=== PATIENT | female | born 1990 | race Caucasian/White ===

== ENCOUNTER 2019-03-25 21:57 | Emergency (ER) | payer SELFPAY ==
[2019-03-25 22:06] VITALS: BMI 20.2
[2019-03-25] MEDS ORDERED: SODIUM CHLORIDE 0.9% 500 ML INFUS.BAG IV ONE (22:26)
--- NOTE | 2019-03-25 22:52 | PDOC ---
History of Present Illness - General Chief Complaint: Pain Stated Complaint: ABD PAIN/FINGER NUMBNESS Time Seen by Provider: 03/25/19 22:24 History Source: Patient Exam Limitations: No Limitations - History of Present Illness Initial Comments: 03/25/19 22:43 28YOF who is with one prior vaginal delivery followed by one LTCS in 2014, who p/w 2 weeks worsening constipation now with mild abdominal swelling and discomfort. She is still passing gas, had a BM today at 5pm which was small, prior to that he last BM was a couple of days ago. States came in today because the discomfort was hard to tolerate last night. She last took Tylenol yesterday. Fever last week but no other recent symptoms, no n/v/d, black/bloody stool, white stool, dysuria, vaginal bleeding or discharge, due for her menstrual period tomorrow. Has not tried a laxative. Past History - Past Medical History Allergies/Adverse Reactions: Allergies Allergy/AdvReac Type Severity Reaction Status Date / Time kiwi Allergy Severe Rash Verified 08/14/14 15:08 No Known Drug Allergies Allergy Verified 07/26/14 13:10 pain medication AdvReac Intermediate Swelling Uncoded 08/14/14 15:08 Home Medications: Ambulatory Orders Vitamins (Sjr) - 1 tab PO DAILY 07/26/14 Acetaminophen [Tylenol .Regular Strength -] 650 mg PO Q4H PRN #0 tablet Ferrous Sulfate [Feosol] 325 mg PO BIDWM #60 ud 08/16/14 Ibuprofen [Motrin -] 600 mg PO Q4H PRN #30 tablet 08/16/14 Vitamins (Sjr) - 1 tab PO DAILY #30 tablet 08/16/14 Docusate Sodium [Colace] 100 mg PO BID PRN #14 capsule 03/25/19 Anemia: Yes Asthma: No Cancer: No Cardiac Disorders: No COPD: No Diabetes: No HTN: No Seizures: No Thyroid Disease: No - Psycho Social/Smoking Cessation Hx Smoking History: Never smoked Have you smoked in the past 12 months: No Hx Alcohol Use: No Drug/Substance Use Hx: No Hx Substance Use Treatment: No Review of Systems - Review of Systems Comments:: 03/25/19 23:07 GEN: no fever, chills, malaise, or generalized weakness HEENT: no ear pain, congestion, sore throat, vision change, or eye pain CV: no chest pain, palpitations, lightheadedness, syncope, or edema RESP: no SOB, wheezing, or cough GI: abdominal pain and swelling, constipation, no nausea, vomiting, diarrhea, or rectal bleed : no dysuria, hematuria, or discharge MSK: no muscle weakness or pain, no joint swelling or pain NEURO: no headache, vertigo, numbness, tingling, or focal weakness PSYCH: no SI, HI, or behavior change SKIN: no jaundice, rash, lesions, or unexplained bruises ROS otherwise negative except as noted in HPI *Physical Exam - Vital Signs Last Vital Signs Temp Pulse Resp BP Pulse Ox 97.8 F 74 20 108/69 100 03/25/19 22:02 03/25/19 22:02 03/25/19 22:02 03/25/19 22:02 03/25/19 22:02 - Physical Exam 03/25/19 23:08 GENERAL: well-appearing, A/Ox4, no distress, answers questions appropriately HEENT: PERRLA, EOMI, moist mucous membranes NECK/BACK: no midline ttp, no spinal stepoff or deformity, no hematoma, full ROM , neck supple CARDIOVASCULAR: regular rate/rhythm, no MGR, strong peripheral pulses, capillary refill <2 seconds, extremities wwp, no edema LUNGS/RESPIRATORY: no respiratory distress, CTAB GI/ABDOMEN: symmetric [id number], hypoactive BS, a bit distended, no ttp, no midline pulsatile masses : no CVA tenderness EXTREMITIES: no muscle atrophy, no acute deformity SKIN: warm and dry, no pallor, no jaundice, no rash, no bruising, no skin breakdown, no cuts, no lesions NEUROLOGICAL: GCS 15, CN II-XII grossly intact, 5/5 strength proximally and distally, no facial droop ED Treatment Course - LABORATORY CBC & Chemistry Diagram: 03/25/19 22:40 03/25/19 22:40 - RADIOLOGY Radiology Studies Ordered: Category Date Time Status ABDOMEN FLAT & UPRIGHT [RAD] Stat Radiology 03/25/19 22:41 Ordered Medical Decision Making - Medical Decision Making 03/25/19 22:52 28YOF p/w constipation and abdominal pain. Initial Vital Signs Temp Pulse Resp BP Pulse Ox 97.8 F 74 20 108/69 100 03/25/19 22:02 03/25/19 22:02 03/25/19 22:02 03/25/19 22:02 03/25/19 22:02 Exam: As noted in Physical Exam section. DDX IBNLT: most likely constipation. Other possibilities , SBO, UTI, etc. W/U ordered: Labs as noted below, XR flat & upright abdomen TX ordered: IVF Abdominal x-ray shows retained stool without dilated bowel loops or air-fluid levels. Fleets enema ordered. Laboratory Tests 03/25/19 03/25/19 03/25/19 22:40 22:40 22:40 WBC 10.7 H RBC 4.28 Hgb 9.6 L Hct 30.2 L D MCV 70.5 L MCH 22.4 L MCHC 31.8 L RDW 17.5 H Plt Count 317 D MPV 8.9 Absolute Neuts (auto) 8.3 H Neutrophils % 77.0 Lymphocytes % 15.8 Monocytes % 6.2 Eosinophils % 0.2 Basophils % 0.8 Nucleated RBC % 0 Sodium 135 L Potassium 3.7 Chloride 104 Carbon Dioxide 21 Anion Gap 9 BUN 10.7 Creatinine 0.7 Est GFR (CKD-EPI)AfAm 138.59 Est GFR (CKD-EPI)NonAf 119.58 Random Glucose 135 H Calcium 9.3 Magnesium 2.0 Total Bilirubin 0.2 AST 6 L ALT 16 Alkaline Phosphatase 75 Total Protein 8.2 Albumin 3.9 Serum , Qual Urine Color Urine Appearance Urine pH Ur Specific [place] Urine Protein Urine Glucose (UA) Urine Ketones Urine Blood Urine Nitrite Urine Bilirubin Urine Urobilinogen Ur Leukocyte Esterase Urine WBC (Auto) Urine RBC (Auto) Urine Casts (Auto) U Epithel Cells (Auto) Urine Bacteria (Auto) 03/25/19 03/26/19 23:20 00:00 WBC RBC Hgb Hct MCV MCH MCHC RDW Plt Count MPV Absolute Neuts (auto) Neutrophils % Lymphocytes % Monocytes % Eosinophils % Basophils % Nucleated RBC % Sodium Potassium Chloride Carbon Dioxide Anion Gap BUN Creatinine Est GFR (CKD-EPI)AfAm Est GFR (CKD-EPI)NonAf Random Glucose Calcium Magnesium Total Bilirubin AST ALT Alkaline Phosphatase Total Protein Albumin Serum , Qual Negative Urine Color Yellow Urine Appearance Clear Urine pH 8.5 H Ur Specific [place] 1.017 Urine Protein Negative Urine Glucose (UA) Negative Urine Ketones Negative Urine Blood 1+ H Urine Nitrite Negative Urine Bilirubin Negative Urine Urobilinogen 0.2 Ur Leukocyte Esterase Negative Urine WBC (Auto) 1 Urine RBC (Auto) 16 Urine Casts (Auto) 1 U Epithel Cells (Auto) 2.3 Urine Bacteria (Auto) 50.7 03/26/19 05:04 EXAM: CT abdomen and pelvis without contrast HISTORY: Abdominal pain COMPARISON: None. FINDINGS: Lung bases are clear. The visualized cardiac chambers are normal size and configuration. Normal liver, gallbladder, pancreas, spleen, adrenal glands and kidneys. The stomach and abdominal small and large bowel are normal. There is no aortic aneurysm. There is no significant retroperitoneal lymphadenopathy. Somewhat prominent mesenteric adenopathy is nonspecific but may indicate mesenteric adenitis. The pelvic small and large bowel are normal. There is no evidence of appendicitis, although the pain is only partially visualized. The uterus and adnexal structures are notable only for a low lying IUD which may be protruding into the cervix.. Urinary bladder is unremarkable. There is a small amount of pelvic free fluid. No discrete pelvic lymphadenopathy is identified. IMPRESSION: Low lying IUD may be protruding into the cervix. Small amount of pelvic free fluid may be physiologic. Questionable mesenteric adenitis. This patient has gotten significant relief of symptoms while in the ED. On last reassessment, vitals are wnl, pain is reasonably controlled, and exam is benign. Workup is not concerning for emergency-level pathology at this time. This patient is appropriate for discharge with close outpatient follow up. They are comfortable with this plan and will follow up with PCP in 1-3 days. E-Rx sent for Colace. Specific return precautions are discussed and they will come back to the ER if necessary. Discharge - Discharge Information Problems reviewed: Yes Clinical Impression/Diagnosis: Intrauterine device, Mesenteric adenitis Constipation Qualifiers: Constipation type: unspecified constipation type Qualified Code(s): K59.00 - Constipation, unspecified Condition: Stable Disposition: HOME - Admission No - Additional Discharge Information Prescriptions: Docusate Sodium [Colace] 100 mg PO BID PRN #14 capsule PRN Reason: Constipation - Follow up/Referral Referrals: Derrek Collazo MD [Staff Physician] - - Patient Discharge Instructions Patient Printed Discharge Instructions: DI for Constipation Additional Instructions: You were seen in the ER for constipation and abdominal pain. We did an exam, imaging studies, and labs. After our assessment, we do not believe you are having a medical emergency at this time, and we believe you are safe to go home. 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 We are giving you referral information for a new hip hop artist in case you need one. 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 Drink plenty of fluids and eat plenty of fiber. Please follow up with your primary care provider in 1-3 days. Call their clinic, tell them you were seen in the ER, and tell them you need a follow-up. If you have any new or worsening symptoms, please come back to the ER at any time (24 hours a day). Especially come back if you have worsening pain, vomiting, inability to pass gas , or if you have not had a bowel movement in the next 2 days. If you are having severe or life threatening symptoms, or symptoms that make it unsafe to drive or have someone drive you, please call 911. Here are the results of your CT scan. 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 EXAM: CT abdomen and pelvis without contrast HISTORY: Abdominal pain COMPARISON: None. FINDINGS: Lung bases are clear. The visualized cardiac chambers are normal size and configuration. Normal liver, gallbladder, pancreas, spleen, adrenal glands and kidneys. The stomach and abdominal small and large bowel are normal. There is no aortic aneurysm. There is no significant retroperitoneal lymphadenopathy. Somewhat prominent mesenteric adenopathy is nonspecific but may indicate mesenteric adenitis. The pelvic small and large bowel are normal. There is no evidence of appendicitis, although the pain is only partially visualized. The uterus and adnexal structures are notable only for a low lying IUD which may be protruding into the cervix.. Urinary bladder is unremarkable. There is a small amount of pelvic free fluid. No discrete pelvic lymphadenopathy is identified. IMPRESSION: Low lying IUD may be protruding into the cervix. Small amount of pelvic free fluid may be physiologic. Questionable mesenteric adenitis. - Post Discharge Activity Work/Back to School Note: Back to Work
[2019-03-25 23:06] LABS: BASO % 0.8 % (0-2.0); EOS % 0.2 % (0-4.5); HEMATOCRIT 30.2 % (32.4-45.2); HEMOGLOBIN 9.6 GM/dL (10.7-15.3); LYMPH % 15.8 % (8-40); MCH 22.4 pg (25.7-33.7); MCHC 31.8 g/dl (32.0-36.0); MEAN CELL VOLUME 70.5 fl (80-96); MEAN PLT VOLUME 8.9 fl (7.5-11.1); MONO % 6.2 % (3.8-10.2); PLATELET COUNT 317 K/MM3 (134-434); RBC 4.28 M/mm3 (3.60-5.2); RDW 17.5 % (11.6-15.6); WHITE BLOOD COUNT 10.7 K/mm3 (4.0-10.0)
--- NOTE | 2019-03-25 23:07 | PDOC ---
Attending Attestation - Resident Resident Name: Rebecca Dickens - ED Attending Attestation I have performed the following: I have examined & evaluated the patient, The case was reviewed & discussed with the resident, I agree w/resident's findings & plan - HPI HPI: see resident hpi - Physicial Exam PE: 03/25/19 23:06 agree with resident exam - Medical Decision Making 03/25/19 23:07 03/25/19 23:05 28-year-old female with constipation abdominal bloating and pain Plan for IV hydration, labs and flat and erect of the abdomen and pelvis Pending results will initiate bowel regimen and plan for DC home 03/25/19 23:06
[2019-03-26 00:21] LABS: EPI CELLS 2.3 /HPF (0-5/HPF); HYALINE CASTS 1 /lpf (0-8); PH,URINE 8.5 (5.0-8.0); URINE APPEARANCE CLEAR; URINE BACTERIA 50.7 /hpf (NEGATIVE); URINE BILIRUBIN NEGATIVE (NEGATIVE); URINE COLOR YELLOW; URINE GLUCOSE (UA) NEGATIVE (NEGATIVE); URINE KETONE NEGATIVE (NEGATIVE); URINE LEUK ESTERASE NEGATIVE (NEGATIVE); URINE NITRITE NEGATIVE (NEGATIVE); URINE PROTEIN NEGATIVE (NEGATIVE); URINE RBC 16 /hpf (0-4); URINE UROBILINOGEN 0.2 mg/dL (0.2-1.0); URINE WBC 1 /hpf (0-5)
[2019-03-26 01:21] LABS: BLOOD UREA NITROGEN 10.7 mg/dL (7-18); CREATININE 0.7 mg/dL (0.55-1.3)
[2019-03-26 01:22] LABS: ALBUMIN 3.9 g/dl (3.4-5.0); BILIRUBIN,TOTAL 0.2 mg/dL (0.2-1); CALCIUM 9.3 mg/dL (8.5-10.1); POTASSIUM 3.7 mmol/L (3.5-5.1); TOT PROT 8.2 g/dl (6.4-8.2)
[2019-03-26] MEDS ORDERED: SODIUM PHOSPHATE/NA BIPHOS 133 ML ENEMA PR ONE (01:25)
[2019-03-26] MEDS ORDERED: KETOROLAC TROMETHAMINE 30 MG/1 ML VIAL IVPUSH ONE (02:54)
[2019-03-26] MEDS ORDERED: KETOROLAC TROMETHAMINE 15 MG/ML VIAL ONE (04:25)
[2019-03-26 05:50] VITALS: BP 113/70; PULSE 70; TEMP 98.2
== END 2019-03-26 06:06 | disposition home or self-care (01) ==
LOC: JER 21:57
PROC: 3E0333Z Introduction of Anti-inflammatory into Peripheral Vein, Percutaneous Approach (ICD-10-PCS; principal; 2019-03-25)
PROC: 3E0337Z Introduction of Electrolytic and Water Balance Substance into Peripheral Vein, Percutaneous Approach (ICD-10-PCS; 2019-03-25)
DX: Z97.5 Presence of (intrauterine) contraceptive device (principal); I88.0 Nonspecific mesenteric lymphadenitis
CPT/HCPCS: 36415; 74019-TC-FY; 74176-TC; 80053; 81003; 83735; 84703; 85025; 87086; 99282-25